=== PATIENT | female | born 1975 | race African-American/Black ===

== ENCOUNTER 2025-06-25 04:05 | Emergency (ER) | payer MEDICAID ==
[~2025-06-25] VITALS: Ht 154.9 cm; Wt 83.0 kg
[~2025-06-25 04:05] MED LIST: ASPI-1160 PO; BUSP10TA4 MT; INSHUMSS SUBCUT; INSU100I28 SQ; LIP40 PO
[2025-06-25 04:10] VITALS: O2SAT 100
[2025-06-25 05:15] LABS: BASOPHILS % 0.0 % (0.0-2.0); EOSINOPHILS % 0.4 % (0.0-5.0); HEMATOCRIT. 40.5 % (36.0-48.0); HEMOGLOBIN. 13.7 g/dL (12.0-16.0); LYMPHOCYTES % 8.5 % (20.0-50.0); MEAN PLATELET VOLUME 8.2 fl (7.4-10.4); MONOCYTES % 3.7 % (2.0-8.0); NEUTROPHILS % 87.4 % (40.0-76.0); PLATELET 216 x1000/uL (130-400); RED BLOOD CELL COUNT 4.59 mill/uL (4.2-5.4); RED CELL DISTRIBUTION WIDTH 13.0 % (11.6-14.6)
[2025-06-25 05:27] LABS: CREATININE 0.8 mg/dL (0.6-1.0); UREA NITROGEN BLOOD 13 mg/dL (9-23)
[2025-06-25 05:28] LABS: TROPONIN I HIGH SENSITIVITY < 4 ng/L (3.0-34)
[2025-06-25] MEDS: ONDANSETRON 4MG ODT PO ONE (05:30)
[2025-06-25] MEDS: DICYCLOMINE HCL 10MG/ML 2ML VIAL IM ONE (06:09)
[2025-06-25] MEDS ORDERED: ONDA-241 MT (08:03)
[2025-06-25] MEDS ORDERED: DICY20TA2 MT (08:03)
[2025-06-25 08:04] LABS: CLARITY URINE CLEAR (CLEAR); COLOR URINE YELLOW (YELLOW); GLUCOSE URINE 3+ (NEGATIVE); KETONES URINE TRACE (NEGATIVE); LEUKOCYTE ESTERASE URINE NEGATIVE (NEGATIVE); NITRITE URINE NEGATIVE (NEGATIVE); OCCULT BLOOD URINE NEGATIVE (NEGATIVE); PH URINE 5.5 (4.5-8.0); PROTEIN URINE TRACE (NEGATIVE); SPECIFIC GRAVITY URINE 1.044 (1.005-1.030); UROBILINOGEN URINE 0.2 E.U./dL (0.2-1.0)
[2025-06-25 08:08] VITALS: BP 175/99; PULSE 94; RESP 15; TEMP 36.8; O2SAT 100
[2025-06-25 08:25] LABS: MUCUS URINE 1+ /lpf (< = 2+); SQUAMOUS EPITHELIAL CELL URINE 2+ /lpf (RARE/1+)
[2025-06-25 08:26] LABS: BACTERIA URINE 2+; RBC URINE NONE SEEN /hpf (0-2); WBC URINE 0-2 /hpf (0-2)
== END 2025-06-25 08:09 | disposition home or self-care (01) ==
LOC: ER 04:05
DX: R10.9 Unspecified abdominal pain (principal); E11.9 Type 2 diabetes mellitus without complications; I10 Essential (primary) hypertension; Z88.0 Allergy status to penicillin
CPT/HCPCS: 99284; 80048; 81003; 85025; 84484; 36415; 93005; 96372; Q0162; J0500